=== PATIENT | female | born 1940 | race Caucasian/White ===

== ENCOUNTER 2021-01-29 08:57 | Outpatient (CLI) | payer MEDICARE, OTHER ==
[~2021-01-29] VITALS: Ht 160 cm; Wt 79.4 kg
[2021-01-29 08:57] VITALS: BP 134/50
[2021-01-29] MEDS ORDERED: CASIRIVIMAB/IMDEVIMAB 1,200 MG in NS (IVPB) 250 ML IV ONE (09:30)
[2021-01-29] MEDS ORDERED: diphenhydrAMINE 50 MG/ML INJ (BENADRYL) IV PRN (09:30)
[2021-01-29] MEDS ORDERED: EPINEPHrine INJECTION 1 MG/ML AMP IM PRN (09:30)
[2021-01-29 10:32] VITALS: BP 108/46
== END 2021-01-29 11:25 ==
LOC: INFUSION 08:57
PROVIDERS: ATTEND Student in an Organized Health Care Education/Training Program
DX: Z23 Encounter for immunization (principal); U07.1 COVID-19